=== PATIENT | male | born 1965 | race Caucasian/White ===

== ENCOUNTER 2018-11-02 21:18 | Inpatient (IN) | payer MEDICAID ==
[~2018-11-02] VITALS: Ht 182.9 cm; Wt 89.8 kg
[2018-11-02] MEDS ORDERED: NKM (21:39)
--- NOTE | 2018-11-02 21:57 | Emergency Room Report ---
History of Present Illness General Chief Complaint: Abdominal Pain Source: Patient Present Illness HPI Patient presents with vomiting and abdominal pain. The pain is described as cramping and 8/10 at this time. He started vomiting this afternoon even though he started feeling ill on Monday. He denies vomiting blood. He's moved his bowels several times and there is no diarrhea. He has no ill contacts, travel or unusual food intake. He feels dehydrated at this time. There is no coffee- ground or hematemesis. He also denies blood in the stool. There's no dysuria. He tried taking Tums on Monday and felt wiped out at that time. There was not significant pain initially. This developed over the past 2 days and became constant today. The patient's been ill for 3 weeks. He's had a mildly productive cough and postnasal drip during that time. He denies fevers but felt chilled with the vomiting today. He has had increased post nasal drip. No rashes, joint pain, headache, diabetes. No anxiety or depression. S/P appi Allergies: Coded Allergies: No Known Allergies (Unverified , 11/02/18) Patient History Past Medical History: see triage record Past Surgical History: appy Social History: Reports: smoking - vape; Denies: alcohol use, drug use Social History Narrative restaurant supply and sales Reviewed Nursing Documentation: PMH: Agreed; PSxH: Agreed Nursing Documentation-PMH Past Medical History: No Stated History Review of Systems All Other Systems: negative except mentioned in HPI Physical Exam Vital Signs Date Time Temp Pulse Resp B/P (MAP) Pulse Ox O2 Delivery O2 Flow Rate FiO2 11/02/18 21:34 97.9 92 18 156/98 95 Room Air Sp02 EP Interpretation: reviewed, normal General Appearance: well appearing, no apparent distress, GCS 15 Head: normocephalic Eyes: bilateral eye normal inspection, bilateral eye PERRL ENT: moist mucus membranes Neck: supple Respiratory: lungs clear, normal breath sounds Cardiovascular #1: regular rate, rhythm Cardiovascular #2: 2+ radial (R) Gastrointestinal: normal inspection, normal bowel sounds, no mass, non- distended, no rebound, guarding - and some referred pain to RLQ, tenderness - RLQ Musculoskeletal: back normal, gait/station normal, normal range of motion Neurologic: alert, oriented x3, normal gait, grossly normal Psychiatric: mood/affect normal Skin: normal inspection, warm/dry Medical Decision Making Diagnostic Impression: Primary Impression: Colitis Additional Impression: Partial small bowel obstruction ER Course Patient presents with abdominal pain and vomiting that began on Monday. Differential includes gastroenteritis, gastritis, small bowel obstruction, pancreatitis, amongst others. Evaluation will be with EKG, chest x-ray, abdominal series and labs. The patient will be treated with IV hydration, Zofran, Pepcid and morphine. Laboratory Tests Test 11/02/18 21:58 11/03/18 07:10 White Blood Count 14.2 K/UL (4.8-10.8) H 11.6 K/UL (4.8-10.8) H Red Blood Count 5.40 M/UL (4.70-6.10) 4.70 M/UL (4.70-6.10) Hemoglobin 17.2 G/DL (14.2-18.0) 15.2 G/DL (14.2-18.0) Hematocrit 49.0 % (42.0-52.0) 42.9 % (42.0-52.0) Mean Corpuscular Volume 91 FL (80-99) 91 FL (80-99) Mean Corpuscular Hemoglobin 31.9 PG (27.0-31.0) H 32.2 PG (27.0-31.0) H Mean Corpuscular Hemoglobin Concent 35.1 G/DL (32.0-36.0) 35.3 G/DL (32.0-36.0) Red Cell Distribution Width 10.8 % (11.6-14.8) L 10.6 % (11.6-14.8) L Platelet Count 393 K/UL (150-450) 349 K/UL (150-450) Mean Platelet Volume 6.0 FL (6.5-10.1) L 6.2 FL (6.5-10.1) L Neutrophils (%) (Auto) 85.1 % (45.0-75.0) H % (45.0-75.0) Lymphocytes (%) (Auto) 6.9 % (20.0-45.0) L % (20.0-45.0) Monocytes (%) (Auto) 7.0 % (1.0-10.0) % (1.0-10.0) Eosinophils (%) (Auto) 0.4 % (0.0-3.0) % (0.0-3.0) Basophils (%) (Auto) 0.6 % (0.0-2.0) % (0.0-2.0) Urine Color Yellow Urine Appearance Clear Urine pH 6 (4.5-8.0) Urine Specific [place] 1.015 (1.005-1.035) Urine Protein Negative (NEGATIVE) Urine Glucose (UA) Negative (NEGATIVE) Urine Ketones 1+ (NEGATIVE) H Urine Blood Negative (NEGATIVE) Urine Nitrite Negative (NEGATIVE) Urine Bilirubin Negative (NEGATIVE) Urine Urobilinogen Normal MG/DL (0.0-1.0) Urine Leukocyte Esterase Negative (NEGATIVE) Sodium Level 140 MMOL/L (136-145) 139 MMOL/L (136-145) Potassium Level 4.3 MMOL/L (3.5-5.1) 4.4 MMOL/L (3.5-5.1) Chloride Level 104 MMOL/L (98-107) 104 MMOL/L (98-107) Carbon Dioxide Level 30 MMOL/L (21-32) 31 MMOL/L (21-32) Anion Gap 6 mmol/L (5-15) 4 mmol/L (5-15) L Blood Urea Nitrogen 13 mg/dL (7-18) 9 mg/dL (7-18) Creatinine 1.0 MG/DL (0.55-1.30) 1.1 MG/DL (0.55-1.30) Estimate Glomerular Filtration Rate > 60 mL/min (>60) > 60 mL/min (>60) Glucose Level 124 MG/DL (74-106) H 125 MG/DL (74-106) H Calcium Level 9.2 MG/DL (8.5-10.1) 8.6 MG/DL (8.5-10.1) Total Bilirubin 0.4 MG/DL (0.2-1.0) 0.4 MG/DL (0.2-1.0) Aspartate Amino Transferase (AST) 25 U/L (15-37) 19 U/L (15-37) Alanine Aminotransferase (ALT) 58 U/L (12-78) 48 U/L (12-78) Alkaline Phosphatase 98 U/L (46-116) 82 U/L (46-116) Troponin I 0.000 ng/mL (0.000-0.056) Total Protein 8.5 G/DL (6.4-8.2) H 7.2 G/DL (6.4-8.2) Albumin 3.8 G/DL (3.4-5.0) 3.2 G/DL (3.4-5.0) L Globulin 4.7 g/dL 4.0 g/dL Albumin/Globulin Ratio 0.8 (1.0-2.7) L 0.8 (1.0-2.7) L Lipase 157 U/L (73-393) Differential Total Cells Counted 100 Neutrophils % (Manual) 92 % (45-75) H Lymphocytes % (Manual) 4 % (20-45) L Monocytes % (Manual) 4 % (1-10) Eosinophils % (Manual) 0 % (0-3) Basophils % (Manual) 0 % (0-2) Band Neutrophils 0 % (0-8) Platelet Estimate Adequate Platelet Morphology Normal Red Blood Cell Morphology Normal EKG Diagnostic Results Rate: normal Rhythm: NSR ST Segments: no acute changes Rhythm Strip Diag. Results EP Interpretation: yes Rhythm: NSR, no PVC's, no ectopy Chest X-Ray Diagnostic Results Chest X-Ray Diagnostic Results : Chest X-Ray Ordered: Yes # of Views/Limited/Complete: 1 View Indication: Other EP Interpretation: Yes Interpretation: no consolidation, no effusion, no pneumothorax Impression: No acute disease Electronically Signed by: Electronically signed by Edison Carrasco MD Other X-Ray Diagnostic Results Other X-Ray Diagnostic Results : X-Ray ordered: Abdomen # of Views/Limited Vs Complete: 1 View Indication: Pain Interpretation: no dislocation, no soft tissue swelling, no fractures Impression: Other Electronically Signed by: Electronically signed by Edison Carrasco MD CT/MRI/US Diagnostic Results CT/MRI/US Diagnostic Results : Imaging Test Ordered: abd pelvis Impression Colitis and possible partial small bowel obstruction Last Vital Signs Date Time Temp Pulse Resp B/P (MAP) Pulse Ox O2 Delivery O2 Flow Rate FiO2 11/03/18 04:12 Room Air 11/03/18 03:50 97.9 71 17 139/85 99 11/03/18 03:50 99 Status: improved Disposition: ADMITTED INPATIENT Condition: Serious Edison Carrasco MD Nov 02, 2018 21:57
[2018-11-02] MEDS ORDERED: Morphine Sulfate 2mg/ml Inj IVP ONE (22:00)
--- NOTE | 2018-11-02 22:40 | Diagnostic Imaging Report ---
EXAM: XR Chest, 1 View CLINICAL HISTORY: ABD PAIN TECHNIQUE: Frontal view of the chest. COMPARISON: No relevant prior studies available. FINDINGS: Lungs: No consolidation. Pleural space: Unremarkable. No pneumothorax. Heart: Unremarkable. No cardiomegaly. Mediastinum: Unremarkable. Bones/joints: No acute fracture. IMPRESSION: No acute cardiopulmonary disease.
[2018-11-02 22:48] LABS: APPEARANCE,URINE CLEAR; BILIRUBIN, URINE NEGATIVE (NEGATIVE); COLOR,URINE YELLOW; GLUCOSE, URINE (UA) NEGATIVE (NEGATIVE); KETONES,URINE 1+ (NEGATIVE); LEUKOCYTE ESTERASE ,URINE NEGATIVE (NEGATIVE); NITRITE,URINE NEGATIVE (NEGATIVE); PH,URINE 6 (4.5-8.0); PROTEIN,URINE NEGATIVE (NEGATIVE); UROBILINOGEN,URINE NORMAL MG/DL (0.0-1.0)
--- NOTE | 2018-11-02 22:51 | Diagnostic Imaging Report ---
EXAM: XR Abdomen, 1 View CLINICAL HISTORY: ABD PAIN TECHNIQUE: Frontal supine view of the abdomen/pelvis. COMPARISON: No relevant prior studies available. FINDINGS: Gastrointestinal tract: Nonspecific bowel gas pattern. Bones/joints: No acute fracture. IMPRESSION: Nonspecific bowel gas pattern.
[2018-11-02 22:55] LABS: HEMOGLOBIN 17.2 G/DL (14.2-18.0); MEAN CORPUSCULAR VOLUME 91 FL (80-99); PLATELET COUNT 393 K/UL (150-450); RED CELL DISTRIBUTION WIDTH 10.8 % (11.6-14.8); WHITE BLOOD COUNT 14.2 K/UL (4.8-10.8)
[2018-11-02 22:56] LABS: EOSINOPHILS % (AUTO) 0.4 % (0.0-3.0); LYMPHOCYTES % (AUTO) 6.9 % (20.0-45.0); NEUTROPHILS % (AUTO) 85.1 % (45.0-75.0)
[2018-11-02 22:57] LABS: BASOPHILS % (AUTO) 0.6 % (0.0-2.0)
[2018-11-02 23:02] LABS: ANION GAP 6 mmol/L (5-15); BLOOD UREA NITROGEN 13 mg/dL (7-18); CALCIUM 9.2 MG/DL (8.5-10.1); CARBON DIOXIDE 30 MMOL/L (21-32); CHLORIDE 104 MMOL/L (98-107); POTASSIUM 4.3 MMOL/L (3.5-5.1); SODIUM 140 MMOL/L (136-145)
[2018-11-02 23:07] LABS: ALANINE AMINOTRANSFERASE 58 U/L (12-78); ALBUMIN 3.8 G/DL (3.4-5.0); ALBUMIN/GLOBULIN RATIO 0.8 (1.0-2.7); ALKALINE PHOSPHATASE 98 U/L (46-116); ASPARTATE AMINO TRANSFERASE 25 U/L (15-37); BILIRUBIN,TOTAL 0.4 MG/DL (0.2-1.0)
[2018-11-02 23:10] VITALS: BP 150/91
[2018-11-03] VITALS (7 sets, daily range): BP systolic 132–144; BP diastolic 69–93
[2018-11-03] MEDS ORDERED: Morphine Sulfate 4mg/ml Inj (IV/IM USE ONLY) IVP ONE
--- NOTE | 2018-11-03 00:38 | Diagnostic Imaging Report ---
EXAM: CT Abdomen With Intravenous Contrast CLINICAL HISTORY: ABD PAIN TECHNIQUE: Axial computed tomography images of the abdomen with intravenous contrast. CTDI is 20 mGy and DLP is 900 mGy-cm. One or more of the following dose reduction techniques were used: automated exposure control, adjustment of the mA and/or kV according to patient size, use of iterative reconstruction technique. COMPARISON: Correlated with earlier radiograph. FINDINGS: Lung bases: Unremarkable. No mass. No consolidation. Liver: Unremarkable. No mass. Gallbladder and bile ducts: Unremarkable. No calcified stones. No ductal dilation. Pancreas: Unremarkable. No mass. No ductal dilation. Spleen: Unremarkable. No splenomegaly. Adrenals: Unremarkable. No mass. Kidneys and ureters: Unremarkable. No solid mass. No hydronephrosis. Stomach and bowel: Abnormal wall thickening of the terminal ileum and proximal ascending colon. There is moderate degree of dilatation of the more proximal small bowel loops with air-fluid levels. Distended stomach. No diverticulitis. Appendix: The appendix is not definitively seen. Probable appendectomy clip on image 50 of series 3. Intraperitoneal space: Mild mesenteric edema and stranding. Small amount of free fluid No free air. No significant fluid collection. Bones/joints: No acute fracture. No dislocation. Arthritic changes in the right SI joint. Soft tissues: Unremarkable. Vasculature: Unremarkable. Lymph nodes: Several mesenteric lymph nodes. IMPRESSION: Findings consistent with infectious or inflammatory enterocolitis involving the terminal ileum and proximal ascending colon. There is secondary developing small bowel obstruction. Recommend followup to exclude underlying occult mass. Small amount of free fluid. No free air or fluid collections. Likely reactive mesenteric lymphadenopathy. Suspected prior appendectomy. Correlate with history.
[2018-11-03] MEDS ORDERED: HYDROmorphone 1mg/ml Carpuject IVP ONE ×2 (01:00→02:00)
[2018-11-03] MEDS ORDERED: Piperacillin/Tazobactam 3.375 GM in NS 110 ML IVPB ONE (01:00)
[2018-11-03] MEDS ORDERED: HYDROmorphone 1mg/ml Carpuject IVP PRN (04:15)
[2018-11-03 07:31] LABS: HEMATOCRIT 42.9 % (42.0-52.0); HEMOGLOBIN 15.2 G/DL (14.2-18.0); MEAN CORPUSCULAR VOLUME 91 FL (80-99); PLATELET COUNT 349 K/UL (150-450); RED CELL DISTRIBUTION WIDTH 10.6 % (11.6-14.8); WHITE BLOOD COUNT 11.6 K/UL (4.8-10.8)
[2018-11-03 07:46] LABS: ALANINE AMINOTRANSFERASE 48 U/L (12-78); ALBUMIN 3.2 G/DL (3.4-5.0); ALBUMIN/GLOBULIN RATIO 0.8 (1.0-2.7); ALKALINE PHOSPHATASE 82 U/L (46-116); ANION GAP 4 mmol/L (5-15); ASPARTATE AMINO TRANSFERASE 19 U/L (15-37); BILIRUBIN,TOTAL 0.4 MG/DL (0.2-1.0); BLOOD UREA NITROGEN 9 mg/dL (7-18); CALCIUM 8.6 MG/DL (8.5-10.1); CARBON DIOXIDE 31 MMOL/L (21-32); CHLORIDE 104 MMOL/L (98-107); CREATININE 1.1 MG/DL (0.55-1.30); POTASSIUM 4.4 MMOL/L (3.5-5.1); SODIUM 139 MMOL/L (136-145)
--- NOTE | 2018-11-03 10:48 | General Progress Note ---
Assessment/Plan Assessment/Plan abd pain ? gastroenteritis CT reviewed stool studies ordered labs ordered including drug screen advance diet fu Subjective ROS Limited/Unobtainable: Yes Allergies: Coded Allergies: No Known Allergies (Unverified , 11/02/18) Subjective abd pain Objective Last 24 Hour Vital Signs Date Time Temp Pulse Resp B/P (MAP) Pulse Ox O2 Delivery O2 Flow Rate FiO2 11/03/18 08:00 98.6 79 132/69 (90) 11/03/18 04:12 Room Air 11/03/18 03:50 97.9 71 17 139/85 99 Room Air 11/03/18 03:50 97.9 71 17 139/85 99 Room Air 99 11/03/18 03:05 97.9 74 17 140/89 99 Room Air 11/03/18 01:09 97.9 72 18 144/93 99 Room Air 11/02/18 23:10 97.9 73 18 150/91 95 Room Air 11/02/18 23:10 73 18 Room Air 99 11/02/18 21:34 97.9 92 18 156/98 95 Room Air Intake and Output 11/02/18 11/03/18 19:00 07:00 Intake Total 4200 ml Balance 4200 ml Intake IV Total 4200 ml Laboratory Tests 11/02/18 21:58: White Blood Count 14.2H, Red Blood Count 5.40, Hemoglobin 17.2, Hematocrit 49.0 , Mean Corpuscular Volume 91, Mean Corpuscular Hemoglobin 31.9H, Mean Corpuscular Hemoglobin Concent 35.1, Red Cell Distribution Width 10.8L, Platelet Count 393, Mean Platelet Volume 6.0L, Neutrophils (%) (Auto) 85.1H, Lymphocytes (%) (Auto) 6.9L, Monocytes (%) (Auto) 7.0, Eosinophils (%) (Auto) 0.4, Basophils (%) (Auto) 0.6, Urine Color Yellow, Urine Appearance Clear, Urine pH 6, Urine Specific [place] 1.015, Urine Protein Negative, Urine Glucose (UA) Negative, Urine Ketones 1+H, Urine Blood Negative, Urine Nitrite Negative, Urine Bilirubin Negative, Urine Urobilinogen Normal, Urine Leukocyte Esterase Negative, Sodium Level 140, Potassium Level 4.3, Chloride Level 104, Carbon Dioxide Level 30, Anion Gap 6, Blood Urea Nitrogen 13, Creatinine 1.0, Estimat Glomerular Filtration Rate > 60, Glucose Level 124H, Calcium Level 9.2, Total Bilirubin 0.4, Aspartate Amino Transf (AST/SGOT) 25, Alanine Aminotransferase ( ALT/SGPT) 58, Alkaline Phosphatase 98, Troponin I 0.000, Total Protein 8.5H, Albumin 3.8, Globulin 4.7, Albumin/Globulin Ratio 0.8L, Lipase 157 11/03/18 07:10: White Blood Count 11.6H, Red Blood Count 4.70, Hemoglobin 15.2, Hematocrit 42.9 , Mean Corpuscular Volume 91, Mean Corpuscular Hemoglobin 32.2H, Mean Corpuscular Hemoglobin Concent 35.3, Red Cell Distribution Width 10.6L, Platelet Count 349, Mean Platelet Volume 6.2L, Neutrophils (%) (Auto) , Lymphocytes (%) (Auto) , Monocytes (%) (Auto) , Eosinophils (%) (Auto) , Basophils (%) (Auto) , Sodium Level 139, Potassium Level 4.4, Chloride Level 104 , Carbon Dioxide Level 31, Anion Gap 4L, Blood Urea Nitrogen 9, Creatinine 1.1, Estimat Glomerular Filtration Rate > 60, Glucose Level 125H, Calcium Level 8.6, Total Bilirubin 0.4, Aspartate Amino Transf (AST/SGOT) 19, Alanine Aminotransferase (ALT/SGPT) 48, Alkaline Phosphatase 82, Total Protein 7.2, Albumin 3.2L, Globulin 4.0, Albumin/Globulin Ratio 0.8L, Differential Total Cells Counted 100, Neutrophils % (Manual) 92H, Lymphocytes % (Manual) 4L, Monocytes % (Manual) 4, Eosinophils % (Manual) 0, Basophils % (Manual) 0, Band Neutrophils 0, Platelet Estimate Adequate, Platelet Morphology Normal, Red Blood Cell Morphology Normal Height (Feet): 6 Height (Inches): 0.00 Weight (Pounds): 212 General Appearance: alert EENT: normal ENT inspection Neck: supple Cardiovascular: normal rate Respiratory/Chest: lungs clear Abdomen: soft, tender Extremities: non-tender Donald Haro MD Nov 03, 2018 10:48
--- NOTE | 2018-11-03 12:15 | History and Physical Report ---
DATE OF ADMISSION: 11/03/2018 REASON FOR ADMISSION: Bowel obstruction. HISTORY OF PRESENT ILLNESS: This is a 53-year-old male presents with abdominal pain. The patient presents with infectious enterocolitis involving terminal ileum and ascending colon with associated small bowel obstruction. The patient is currently complaining of abdominal pain. The patient had been undergoing detox for alcohol and denies any significant diarrhea at this time. The patient has had no fevers or chills. No ill contacts. No recent travel. The patient has been ill for three weeks for upper airway symptoms. The patient is also with history of appendectomy. PAST MEDICAL HISTORY: Notable for the above. MEDICATIONS: Reviewed. ALLERGIES: Reviewed. SOCIAL HISTORY: Residing now at [facility] and does have history of alcohol abuse. REVIEW OF SYSTEMS: Otherwise negative. PHYSICAL EXAMINATION: GENERAL: A well-developed male, otherwise comfortable. VITAL SIGNS: Stable. The patient is afebrile. LUNGS: Clear. CARDIAC: S1, S2. Regular rate and rhythm. ABDOMEN: Tender diffusely, more on the right side. EXTREMITIES: No edema. LABORATORY AND DIAGNOSTIC DATA: White count is 11.6. Chemistry is fairly negative. Albumin is 3.2. IMPRESSION: Small bowel obstruction, evidence of enteritis, alcohol abuse per history, mild protein-calorie malnutrition. RECOMMENDATIONS: Supportive care, IV hydration, pain control. Clear liquid diet. GI evaluation. Reassess and recommend further. Discharge once improved and stable. We will follow clinically for further changes intervention and ongoing recommendations. Tyrese Mathew M.D. DR: SABINA JOB#: [id number] CC:
[2018-11-04] VITALS (7 sets, daily range): BP systolic 121–143; BP diastolic 62–100
[2018-11-04] MEDS ORDERED: Morphine Sulfate 4mg/ml Inj (IV/IM USE ONLY) IVP PRN ×2 (04:15)
[2018-11-04] MEDS ORDERED: Morphine Sulfate 2mg/ml Inj IVP PRN ×2 (04:15→04:45)
[2018-11-04] MEDS: Morphine Sulfate 4mg/ml Inj (IV/IM USE ONLY) IVP PRN ×5 (05:27→21:52)
--- NOTE | 2018-11-04 07:07 | General Progress Note ---
Assessment/Plan Assessment/Plan abd pain ? gastroenteritis CT reviewed stool studies ordered labs ordered including drug screen advance diet fu Subjective ROS Limited/Unobtainable: Yes Allergies: Coded Allergies: No Known Allergies (Unverified , 11/02/18) Subjective abd pain vomiting no BM passing gas Objective Last 24 Hour Vital Signs Date Time Temp Pulse Resp B/P (MAP) Pulse Ox O2 Delivery O2 Flow Rate FiO2 11/04/18 05:57 99.1 11/04/18 05:56 99.1 11/04/18 05:33 100 11/04/18 05:19 99.1 11/04/18 04:55 102.3 19 143/100 (114) 92 11/04/18 02:49 99.1 11/04/18 00:51 99.1 93 19 136/86 (103) 95 11/03/18 20:00 Room Air 11/03/18 20:00 99.3 86 19 132/82 (99) 93 11/03/18 16:00 99.9 93 19 134/84 (101) 93 11/03/18 12:00 99.4 88 19 135/85 (102) 93 11/03/18 09:00 Room Air 11/03/18 08:00 98.6 79 132/69 (90) Intake and Output 11/03/18 11/04/18 19:00 07:00 Intake Total 100 ml 1310 ml Output Total 100 ml Balance 100 ml 1210 ml Intake Oral 360 ml IV Total 100 ml 600 ml Other 350 ml Output Emesis 100 ml # Voids 5 Laboratory Tests 11/03/18 07:10: White Blood Count 11.6H, Red Blood Count 4.70, Hemoglobin 15.2, Hematocrit 42.9 , Mean Corpuscular Volume 91, Mean Corpuscular Hemoglobin 32.2H, Mean Corpuscular Hemoglobin Concent 35.3, Red Cell Distribution Width 10.6L, Platelet Count 349, Mean Platelet Volume 6.2L, Neutrophils (%) (Auto) , Lymphocytes (%) (Auto) , Monocytes (%) (Auto) , Eosinophils (%) (Auto) , Basophils (%) (Auto) , Differential Total Cells Counted 100, Neutrophils % ( Manual) 92H, Lymphocytes % (Manual) 4L, Monocytes % (Manual) 4, Eosinophils % ( Manual) 0, Basophils % (Manual) 0, Band Neutrophils 0, Platelet Estimate Adequate, Platelet Morphology Normal, Red Blood Cell Morphology Normal, Sodium Level 139, Potassium Level 4.4, Chloride Level 104, Carbon Dioxide Level 31, Anion Gap 4L, Blood Urea Nitrogen 9, Creatinine 1.1, Estimat Glomerular Filtration Rate > 60, Glucose Level 125H, Calcium Level 8.6, Total Bilirubin 0.4 , Aspartate Amino Transf (AST/SGOT) 19, Alanine Aminotransferase (ALT/SGPT) 48, Alkaline Phosphatase 82, Total Protein 7.2, Albumin 3.2L, Globulin 4.0, Albumin/ Globulin Ratio 0.8L 11/03/18 15:00: Urine Opiates Screen Negative, Urine Barbiturates Screen Negative, Phencyclidine (PCP) Screen Negative, Urine Amphetamines Screen Negative, Urine Benzodiazepines Screen Negative, Urine Cocaine Screen Negative, Urine Marijuana (THC) Screen Negative Height (Feet): 6 Height (Inches): 0.00 Weight (Pounds): 212 Donald Haro MD Nov 04, 2018 07:07
--- NOTE | 2018-11-04 07:08 | General Progress Note ---
Assessment/Plan Assessment/Plan abd pain ? gastroenteritis CT reviewed stool studies not collected bladimir fu labs start clears Subjective ROS Limited/Unobtainable: Yes Allergies: Coded Allergies: No Known Allergies (Unverified , 11/02/18) Subjective abd pain vomiting no BM passing gas Objective Last 24 Hour Vital Signs Date Time Temp Pulse Resp B/P (MAP) Pulse Ox O2 Delivery O2 Flow Rate FiO2 11/04/18 05:57 99.1 11/04/18 05:56 99.1 11/04/18 05:33 100 11/04/18 05:19 99.1 11/04/18 04:55 102.3 19 143/100 (114) 92 11/04/18 02:49 99.1 11/04/18 00:51 99.1 93 19 136/86 (103) 95 11/03/18 20:00 Room Air 11/03/18 20:00 99.3 86 19 132/82 (99) 93 11/03/18 16:00 99.9 93 19 134/84 (101) 93 11/03/18 12:00 99.4 88 19 135/85 (102) 93 11/03/18 09:00 Room Air 11/03/18 08:00 98.6 79 132/69 (90) Intake and Output 11/03/18 11/04/18 19:00 07:00 Intake Total 100 ml 1310 ml Output Total 100 ml Balance 100 ml 1210 ml Intake Oral 360 ml IV Total 100 ml 600 ml Other 350 ml Output Emesis 100 ml # Voids 5 Laboratory Tests 11/03/18 07:10: White Blood Count 11.6H, Red Blood Count 4.70, Hemoglobin 15.2, Hematocrit 42.9 , Mean Corpuscular Volume 91, Mean Corpuscular Hemoglobin 32.2H, Mean Corpuscular Hemoglobin Concent 35.3, Red Cell Distribution Width 10.6L, Platelet Count 349, Mean Platelet Volume 6.2L, Neutrophils (%) (Auto) , Lymphocytes (%) (Auto) , Monocytes (%) (Auto) , Eosinophils (%) (Auto) , Basophils (%) (Auto) , Differential Total Cells Counted 100, Neutrophils % ( Manual) 92H, Lymphocytes % (Manual) 4L, Monocytes % (Manual) 4, Eosinophils % ( Manual) 0, Basophils % (Manual) 0, Band Neutrophils 0, Platelet Estimate Adequate, Platelet Morphology Normal, Red Blood Cell Morphology Normal, Sodium Level 139, Potassium Level 4.4, Chloride Level 104, Carbon Dioxide Level 31, Anion Gap 4L, Blood Urea Nitrogen 9, Creatinine 1.1, Estimat Glomerular Filtration Rate > 60, Glucose Level 125H, Calcium Level 8.6, Total Bilirubin 0.4 , Aspartate Amino Transf (AST/SGOT) 19, Alanine Aminotransferase (ALT/SGPT) 48, Alkaline Phosphatase 82, Total Protein 7.2, Albumin 3.2L, Globulin 4.0, Albumin/ Globulin Ratio 0.8L 11/03/18 15:00: Urine Opiates Screen Negative, Urine Barbiturates Screen Negative, Phencyclidine (PCP) Screen Negative, Urine Amphetamines Screen Negative, Urine Benzodiazepines Screen Negative, Urine Cocaine Screen Negative, Urine Marijuana (THC) Screen Negative Height (Feet): 6 Height (Inches): 0.00 Weight (Pounds): 212 General Appearance: alert EENT: normal ENT inspection Neck: supple Cardiovascular: normal rate Respiratory/Chest: lungs clear Abdomen: soft, hypoactive bowel sounds, tender Extremities: non-tender Donald Haro MD Nov 04, 2018 07:08
[2018-11-04 08:10] LABS: HEMOGLOBIN 15.8 G/DL (14.2-18.0); MEAN CORPUSCULAR VOLUME 90 FL (80-99); PLATELET COUNT 327 K/UL (150-450); RED BLOOD COUNT 4.87 M/UL (4.70-6.10); RED CELL DISTRIBUTION WIDTH 10.7 % (11.6-14.8); WHITE BLOOD COUNT 13.5 K/UL (4.8-10.8)
[2018-11-04 08:28] LABS: ALANINE AMINOTRANSFERASE 32 U/L (12-78); ALBUMIN 3.1 G/DL (3.4-5.0); ALBUMIN/GLOBULIN RATIO 0.7 (1.0-2.7); ALKALINE PHOSPHATASE 83 U/L (46-116); AMYLASE 57 U/L (25-115); ANION GAP 8 mmol/L (5-15); ASPARTATE AMINO TRANSFERASE 16 U/L (15-37); BILIRUBIN,TOTAL 0.4 MG/DL (0.2-1.0); BLOOD UREA NITROGEN 8 mg/dL (7-18); CALCIUM 8.8 MG/DL (8.5-10.1); CARBON DIOXIDE 30 MMOL/L (21-32); CHLORIDE 101 MMOL/L (98-107); POTASSIUM 3.7 MMOL/L (3.5-5.1); SODIUM 138 MMOL/L (136-145)
--- NOTE | 2018-11-04 08:45 | General Progress Note ---
Assessment/Plan Assessment/Plan IMPRESSION: Small bowel obstruction, evidence of enteritis, alcohol abuse per history, mild protein-calorie malnutrition. gastroenteritis PLAN clears monitor hope to dc in am if stable and improved imaging noted impression, plan, and exam edited and reviewed in detail care discussed with RN Subjective Allergies: Coded Allergies: No Known Allergies (Unverified , 11/02/18) Subjective still vomited last night seen by GI Objective Last 24 Hour Vital Signs Date Time Temp Pulse Resp B/P (MAP) Pulse Ox O2 Delivery O2 Flow Rate FiO2 11/04/18 05:57 99.1 11/04/18 05:56 99.1 11/04/18 05:33 100 11/04/18 05:19 99.1 11/04/18 04:55 102.3 19 143/100 (114) 92 11/04/18 02:49 99.1 11/04/18 00:51 99.1 93 19 136/86 (103) 95 11/03/18 20:00 Room Air 11/03/18 20:00 99.3 86 19 132/82 (99) 93 11/03/18 16:00 99.9 93 19 134/84 (101) 93 11/03/18 12:00 99.4 88 19 135/85 (102) 93 11/03/18 09:00 Room Air Intake and Output 11/03/18 11/04/18 19:00 07:00 Intake Total 100 ml 1510 ml Output Total 100 ml Balance 100 ml 1410 ml Intake Oral 360 ml IV Total 100 ml 800 ml Other 350 ml Output Emesis 100 ml # Voids 5 Laboratory Tests 11/03/18 15:00: Urine Opiates Screen Negative, Urine Barbiturates Screen Negative, Phencyclidine (PCP) Screen Negative, Urine Amphetamines Screen Negative, Urine Benzodiazepines Screen Negative, Urine Cocaine Screen Negative, Urine Marijuana (THC) Screen Negative 11/04/18 06:28: White Blood Count 13.5H, Red Blood Count 4.87, Hemoglobin 15.8, Hematocrit 44.0 , Mean Corpuscular Volume 90, Mean Corpuscular Hemoglobin 32.4H, Mean Corpuscular Hemoglobin Concent 35.9, Red Cell Distribution Width 10.7L, Platelet Count 327, Mean Platelet Volume 5.8L, Neutrophils (%) (Auto) , Lymphocytes (%) (Auto) , Monocytes (%) (Auto) , Eosinophils (%) (Auto) , Basophils (%) (Auto) , Differential Total Cells Counted 100, Neutrophils % ( Manual) 86H, Lymphocytes % (Manual) 8L, Monocytes % (Manual) 4, Eosinophils % ( Manual) 0, Basophils % (Manual) 0, Band Neutrophils 2, Platelet Estimate Adequate, Platelet Morphology Normal, Red Blood Cell Morphology Normal, Sodium Level 138, Potassium Level 3.7, Chloride Level 101, Carbon Dioxide Level 30, Anion Gap 8, Blood Urea Nitrogen 8, Creatinine 1.0, Estimat Glomerular Filtration Rate > 60, Glucose Level 145H, Calcium Level 8.8, Total Bilirubin 0.4 , Aspartate Amino Transf (AST/SGOT) 16, Alanine Aminotransferase (ALT/SGPT) 32, Alkaline Phosphatase 83, Total Protein 7.4, Albumin 3.1L, Globulin 4.3, Albumin/ Globulin Ratio 0.7L, Amylase Level 57, Lipase 95 Height (Feet): 6 Height (Inches): 0.00 Weight (Pounds): 212 Objective PHYSICAL EXAMINATION: GENERAL: A well-developed male, otherwise comfortable. LUNGS: Clear. CARDIAC: S1, S2. Regular rate and rhythm. ABDOMEN: mildly Tender diffusely, more on the right side. EXTREMITIES: No edema. nonfocal Tyrese Mathew MD Nov 04, 2018 08:45
--- NOTE | 2018-11-04 08:56 | Diagnostic Imaging Report ---
EXAM: XR Chest, 1 View CLINICAL HISTORY: ABD PAIN TECHNIQUE: Frontal view of the chest. COMPARISON: 11/02/18. FINDINGS: Lungs: Minimal basilar atelectasis. Pleural space: Unremarkable. No pneumothorax. Heart: Unremarkable. No cardiomegaly. Mediastinum: Unremarkable. Bones/joints: Unremarkable. IMPRESSION: No acute pulmonary disease. Minimal basilar atelectasis.
[2018-11-05] VITALS: BP 136/83
[2018-11-05 04:00] VITALS: BP 153/88
[2018-11-05] MEDS: Morphine Sulfate 4mg/ml Inj (IV/IM USE ONLY) IVP PRN ×5 (05:42→19:51)
[2018-11-05 06:29] LABS: BASOPHILS % (AUTO) 0.6 % (0.0-2.0); EOSINOPHILS % (AUTO) 0.3 % (0.0-3.0); HEMATOCRIT 42.4 % (42.0-52.0); HEMOGLOBIN 15.2 G/DL (14.2-18.0); LYMPHOCYTES % (AUTO) 7.3 % (20.0-45.0); MEAN CORPUSCULAR VOLUME 90 FL (80-99); MONOCYTES % (AUTO) 9.9 % (1.0-10.0); NEUTROPHILS % (AUTO) 81.9 % (45.0-75.0); PLATELET COUNT 305 K/UL (150-450); RED BLOOD COUNT 4.69 M/UL (4.70-6.10); RED CELL DISTRIBUTION WIDTH 10.7 % (11.6-14.8); WHITE BLOOD COUNT 11.1 K/UL (4.8-10.8)
[2018-11-05 06:52] LABS: ALANINE AMINOTRANSFERASE 29 U/L (12-78); ALBUMIN 2.8 G/DL (3.4-5.0); ALBUMIN/GLOBULIN RATIO 0.7 (1.0-2.7); ALKALINE PHOSPHATASE 71 U/L (46-116); ANION GAP 5 mmol/L (5-15); ASPARTATE AMINO TRANSFERASE 15 U/L (15-37); BILIRUBIN,TOTAL 0.4 MG/DL (0.2-1.0); BLOOD UREA NITROGEN 8 mg/dL (7-18); CALCIUM 8.3 MG/DL (8.5-10.1); CARBON DIOXIDE 31 MMOL/L (21-32); CHLORIDE 101 MMOL/L (98-107); CREATININE 0.9 MG/DL (0.55-1.30); POTASSIUM 3.9 MMOL/L (3.5-5.1); SODIUM 137 MMOL/L (136-145)
[2018-11-05 08:00] VITALS: BP 146/84
--- NOTE | 2018-11-05 08:34 | General Progress Note ---
Assessment/Plan Assessment/Plan IMPRESSION: Small bowel obstruction, evidence of enteritis, alcohol abuse per history, mild protein-calorie malnutrition. gastroenteritis PLAN clears monitor dc planning imaging noted impression, plan, and exam edited and reviewed in detail care discussed with RN Subjective Allergies: Coded Allergies: No Known Allergies (Unverified , 11/02/18) Subjective appreciate GI Objective Last 24 Hour Vital Signs Date Time Temp Pulse Resp B/P (MAP) Pulse Ox O2 Delivery O2 Flow Rate FiO2 11/05/18 08:00 99.9 94 19 146/84 (104) 95 11/05/18 04:00 99.1 88 18 153/88 (109) 97 11/05/18 00:00 99.4 67 18 136/83 (100) 96 11/04/18 21:00 Room Air 11/04/18 20:00 98.3 85 19 143/83 (103) 97 11/04/18 16:00 98.4 64 18 128/73 (91) 98 11/04/18 12:00 98.6 74 18 124/81 (95) 98 11/04/18 09:00 Room Air Intake and Output 11/04/18 11/05/18 19:00 07:00 Intake Total 900 ml 1720 ml Output Total 150 ml Balance 900 ml 1570 ml Intake Oral 620 ml IV Total 900 ml 1100 ml Output Emesis 150 ml # Voids 2 4 Laboratory Tests 11/05/18 05:40: White Blood Count 11.1H, Red Blood Count 4.69L, Hemoglobin 15.2, Hematocrit 42.4 , Mean Corpuscular Volume 90, Mean Corpuscular Hemoglobin 32.3H, Mean Corpuscular Hemoglobin Concent 35.7, Red Cell Distribution Width 10.7L, Platelet Count 305, Mean Platelet Volume 5.9L, Neutrophils (%) (Auto) 81.9H, Lymphocytes (%) (Auto) 7.3L, Monocytes (%) (Auto) 9.9, Eosinophils (%) (Auto) 0.3, Basophils (%) (Auto) 0.6, Sodium Level 137, Potassium Level 3.9, Chloride Level 101, Carbon Dioxide Level 31, Anion Gap 5, Blood Urea Nitrogen 8, Creatinine 0.9, Estimat Glomerular Filtration Rate > 60, Glucose Level 113H, Calcium Level 8.3L, Total Bilirubin 0.4, Aspartate Amino Transf (AST/SGOT) 15, Alanine Aminotransferase (ALT/SGPT) 29, Alkaline Phosphatase 71, Total Protein 6.6, Albumin 2.8L, Globulin 3.8, Albumin/Globulin Ratio 0.7L Height (Feet): 6 Height (Inches): 0.00 Weight (Pounds): 212 Objective PHYSICAL EXAMINATION: GENERAL: A well-developed male, otherwise comfortable. LUNGS: Clear. CARDIAC: S1, S2. Regular rate and rhythm. ABDOMEN: NABS no CCE nonfocal Tyrese Mathew MD Nov 05, 2018 08:34
[2018-11-05] MEDS ORDERED: Milk of Magnesia 30ml Ud ORAL PRN (10:00)
--- NOTE | 2018-11-05 11:13 | GI Progress Note ---
Assessment/Plan Problems: (1) Colitis ICD Codes: K52.9 - Noninfective gastroenteritis and colitis, unspecified SNOMED: 53030756 (2) Partial small bowel obstruction ICD Codes: K56.600 - Partial intestinal obstruction, unspecified as to cause SNOMED: 349416011 (3) Short bowel syndrome ICD Codes: K91.2 - Postsurgical malabsorption, not elsewhere classified SNOMED: 24316371 (4) SOB (shortness of breath) ICD Codes: R06.02 - Shortness of breath SNOMED: 968594650 Status: unchanged Status Narrative Discussed with Dr. Haro. Assessment/Plan abd pain CT reviewed infectious or inflammatory enterocolitis involving the terminal ileum and proximal ascending colon. There is secondary developing small bowel obstruction. ? gastroenteritis collator image ordered avoid narcotic use CLD, advance as tolerated abx fu labs UPDATE @ 1500 >> KUB shows worsening SB dilated loops >> Make NPO, SB Follow through ordered. The patient was seen and examined at bedside and all new and available data was reviewed in the patients chart. I agree with the above findings, impression and plan. (Patient seen earlier today. Signature stamp does not reflect patient encounter time.). - Donald Haro MD Subjective Subjective no BM not passing gas abdominal distention emesis x3 last night Objective Last 24 Hour Vital Signs Date Time Temp Pulse Resp B/P (MAP) Pulse Ox O2 Delivery O2 Flow Rate FiO2 11/05/18 09:30 98.4 11/05/18 09:00 Room Air 11/05/18 08:00 99.9 94 19 146/84 (104) 95 11/05/18 04:00 99.1 88 18 153/88 (109) 97 11/05/18 00:00 99.4 67 18 136/83 (100) 96 11/04/18 21:00 Room Air 11/04/18 20:00 98.3 85 19 143/83 (103) 97 11/04/18 16:00 98.4 64 18 128/73 (91) 98 11/04/18 12:00 98.6 74 18 124/81 (95) 98 Intake and Output 11/04/18 11/05/18 19:00 07:00 Intake Total 900 ml 1720 ml Output Total 150 ml Balance 900 ml 1570 ml Intake Oral 620 ml IV Total 900 ml 1100 ml Output Emesis 150 ml # Voids 2 4 Laboratory Tests Test 11/05/18 05:40 White Blood Count 11.1 K/UL (4.8-10.8) H Red Blood Count 4.69 M/UL (4.70-6.10) L Hemoglobin 15.2 G/DL (14.2-18.0) Hematocrit 42.4 % (42.0-52.0) Mean Corpuscular Volume 90 FL (80-99) Mean Corpuscular Hemoglobin 32.3 PG (27.0-31.0) H Mean Corpuscular Hemoglobin Concent 35.7 G/DL (32.0-36.0) Red Cell Distribution Width 10.7 % (11.6-14.8) L Platelet Count 305 K/UL (150-450) Mean Platelet Volume 5.9 FL (6.5-10.1) L Neutrophils (%) (Auto) 81.9 % (45.0-75.0) H Lymphocytes (%) (Auto) 7.3 % (20.0-45.0) L Monocytes (%) (Auto) 9.9 % (1.0-10.0) Eosinophils (%) (Auto) 0.3 % (0.0-3.0) Basophils (%) (Auto) 0.6 % (0.0-2.0) Sodium Level 137 MMOL/L (136-145) Potassium Level 3.9 MMOL/L (3.5-5.1) Chloride Level 101 MMOL/L (98-107) Carbon Dioxide Level 31 MMOL/L (21-32) Anion Gap 5 mmol/L (5-15) Blood Urea Nitrogen 8 mg/dL (7-18) Creatinine 0.9 MG/DL (0.55-1.30) Estimat Glomerular Filtration Rate > 60 mL/min (>60) Glucose Level 113 MG/DL (74-106) H Calcium Level 8.3 MG/DL (8.5-10.1) L Total Bilirubin 0.4 MG/DL (0.2-1.0) Aspartate Amino Transf (AST/SGOT) 15 U/L (15-37) Alanine Aminotransferase (ALT/SGPT) 29 U/L (12-78) Alkaline Phosphatase 71 U/L (46-116) Total Protein 6.6 G/DL (6.4-8.2) Albumin 2.8 G/DL (3.4-5.0) L Globulin 3.8 g/dL Albumin/Globulin Ratio 0.7 (1.0-2.7) L Height (Feet): 6 Height (Inches): 0.00 Weight (Pounds): 212 General Appearance: WD/WN, no apparent distress, alert Cardiovascular: normal rate Respiratory/Chest: normal breath sounds, no respiratory distress Abdominal Exam: soft, distended, tender Extremities: non-tender Vin Morales NP Nov 05, 2018 11:13
[2018-11-05 12:00] VITALS: BP 144/97
[2018-11-05] MEDS ORDERED: Zolpidem 5mg tab ORAL PRN (14:30)
--- NOTE | 2018-11-05 14:37 | Diagnostic Imaging Report ---
Indication: Abdominal pain Comparison: 11/03/2018 Single view of the abdomen obtained Findings: Small bowel distention appears slightly worse on the current examination. This is centered about the mid abdomen. IMPRESSION: Worsening small bowel dilatation, currently mild to moderate in degree. Follow-up suggested.
[2018-11-05] MEDS ORDERED: Tubing IV Secondary IV ONE (15:45)
[2018-11-05 16:00] VITALS: BP 126/77
[2018-11-05 20:00] VITALS: BP 125/59
[2018-11-06] MEDS: Morphine Sulfate 4mg/ml Inj (IV/IM USE ONLY) IVP PRN ×6 (00:48→17:09)
[2018-11-06 04:00] VITALS: BP 114/64
[2018-11-06 06:56] LABS: ANION GAP 4 mmol/L (5-15); BLOOD UREA NITROGEN 8 mg/dL (7-18); CALCIUM 8.2 MG/DL (8.5-10.1); CARBON DIOXIDE 31 MMOL/L (21-32); CHLORIDE 105 MMOL/L (98-107); CREATININE 0.8 MG/DL (0.55-1.30); POTASSIUM 3.6 MMOL/L (3.5-5.1); SODIUM 140 MMOL/L (136-145)
[2018-11-06 07:16] LABS: BASOPHILS % (AUTO) 0.8 % (0.0-2.0); EOSINOPHILS % (AUTO) 1.6 % (0.0-3.0); HEMATOCRIT 37.5 % (42.0-52.0); HEMOGLOBIN 13.4 G/DL (14.2-18.0); LYMPHOCYTES % (AUTO) 24.2 % (20.0-45.0); MEAN CORPUSCULAR VOLUME 91 FL (80-99); MONOCYTES % (AUTO) 12.9 % (1.0-10.0); NEUTROPHILS % (AUTO) 60.6 % (45.0-75.0); PLATELET COUNT 295 K/UL (150-450); RED BLOOD COUNT 4.14 M/UL (4.70-6.10); RED CELL DISTRIBUTION WIDTH 10.3 % (11.6-14.8); WHITE BLOOD COUNT 7.3 K/UL (4.8-10.8)
[2018-11-06 08:00] VITALS: BP 126/74
--- NOTE | 2018-11-06 12:01 | GI Progress Note ---
Assessment/Plan Problems: (1) Colitis ICD Codes: K52.9 - Noninfective gastroenteritis and colitis, unspecified SNOMED: 90347386 (2) Partial small bowel obstruction ICD Codes: K56.600 - Partial intestinal obstruction, unspecified as to cause SNOMED: 061767531 (3) Short bowel syndrome ICD Codes: K91.2 - Postsurgical malabsorption, not elsewhere classified SNOMED: 04519157 (4) SOB (shortness of breath) ICD Codes: R06.02 - Shortness of breath SNOMED: 055356220 Status: unchanged Status Narrative Discussed with Dr. Haro. Assessment/Plan abd pain CT reviewed infectious or inflammatory enterocolitis involving the terminal ileum and proximal ascending colon. There is secondary developing small bowel obstruction. ? gastroenteritis KUB shows worsening SB dilated loops SBFT today avoid narcotic use Maintain NPO + IVFs abx fu labs The patient was seen and examined at bedside and all new and available data was reviewed in the patients chart. I agree with the above findings, impression and plan. (Patient seen earlier today. Signature stamp does not reflect patient encounter time.). - Donald Haro MD Subjective Subjective abdominal distention Objective Last 24 Hour Vital Signs Date Time Temp Pulse Resp B/P (MAP) Pulse Ox O2 Delivery O2 Flow Rate FiO2 11/06/18 08:12 Room Air 11/06/18 08:00 98.0 61 19 126/74 (91) 95 11/06/18 04:00 98.0 65 19 114/64 (81) 95 11/05/18 21:00 Room Air 11/05/18 20:00 98.6 86 18 125/59 (81) 100 11/05/18 16:00 99.7 75 20 126/77 (93) 95 11/05/18 13:20 98.6 Intake and Output 11/05/18 11/06/18 19:00 07:00 Intake Total 400 ml 1000 ml Balance 400 ml 1000 ml Intake Oral 300 ml IV Total 100 ml 1000 ml # Voids 3 3 # Bowel Movements 2 Laboratory Tests Test 11/06/18 05:30 White Blood Count 7.3 K/UL (4.8-10.8) Red Blood Count 4.14 M/UL (4.70-6.10) L Hemoglobin 13.4 G/DL (14.2-18.0) L Hematocrit 37.5 % (42.0-52.0) L Mean Corpuscular Volume 91 FL (80-99) Mean Corpuscular Hemoglobin 32.4 PG (27.0-31.0) H Mean Corpuscular Hemoglobin Concent 35.8 G/DL (32.0-36.0) Red Cell Distribution Width 10.3 % (11.6-14.8) L Platelet Count 295 K/UL (150-450) Mean Platelet Volume 6.3 FL (6.5-10.1) L Neutrophils (%) (Auto) 60.6 % (45.0-75.0) Lymphocytes (%) (Auto) 24.2 % (20.0-45.0) Monocytes (%) (Auto) 12.9 % (1.0-10.0) H Eosinophils (%) (Auto) 1.6 % (0.0-3.0) Basophils (%) (Auto) 0.8 % (0.0-2.0) Sodium Level 140 MMOL/L (136-145) Potassium Level 3.6 MMOL/L (3.5-5.1) Chloride Level 105 MMOL/L (98-107) Carbon Dioxide Level 31 MMOL/L (21-32) Anion Gap 4 mmol/L (5-15) L Blood Urea Nitrogen 8 mg/dL (7-18) Creatinine 0.8 MG/DL (0.55-1.30) Estimat Glomerular Filtration Rate > 60 mL/min (>60) Glucose Level 100 MG/DL (74-106) Calcium Level 8.2 MG/DL (8.5-10.1) L Microbiology Date/Time Source Procedure Growth Status 11/05/18 16:10 Stool Stool Culture Pending Resulted 11/05/18 16:10 Stool Clostridium difficile Toxin Assay - Final Resulted Height (Feet): 6 Height (Inches): 0.00 Weight (Pounds): 212 General Appearance: WD/WN, no apparent distress, alert Cardiovascular: normal rate Respiratory/Chest: normal breath sounds, no respiratory distress Abdominal Exam: normal bowel sounds, non tender, soft, distended Extremities: normal range of motion, non-tender Vin Morales NP Nov 06, 2018 12:01
--- NOTE | 2018-11-06 12:45 | General Progress Note ---
Assessment/Plan Assessment/Plan IMPRESSION: Small bowel obstruction, evidence of enteritis, alcohol abuse per history, mild protein-calorie malnutrition. gastroenteritis PLAN NPO SBFT monitor dc planning when cleared by GI imaging noted impression, plan, and exam edited and reviewed in detail care discussed with RN Subjective Allergies: Coded Allergies: No Known Allergies (Unverified , 11/02/18) Subjective appreciate GI findings noted Objective Last 24 Hour Vital Signs Date Time Temp Pulse Resp B/P (MAP) Pulse Ox O2 Delivery O2 Flow Rate FiO2 11/06/18 08:12 Room Air 11/06/18 08:00 98.0 61 19 126/74 (91) 95 11/06/18 04:00 98.0 65 19 114/64 (81) 95 11/05/18 21:00 Room Air 11/05/18 20:00 98.6 86 18 125/59 (81) 100 11/05/18 16:00 99.7 75 20 126/77 (93) 95 11/05/18 13:20 98.6 Intake and Output 11/05/18 11/06/18 19:00 07:00 Intake Total 400 ml 1000 ml Balance 400 ml 1000 ml Intake Oral 300 ml IV Total 100 ml 1000 ml # Voids 3 3 # Bowel Movements 2 Laboratory Tests 11/06/18 05:30: White Blood Count 7.3, Red Blood Count 4.14L, Hemoglobin 13.4L, Hematocrit 37.5L , Mean Corpuscular Volume 91, Mean Corpuscular Hemoglobin 32.4H, Mean Corpuscular Hemoglobin Concent 35.8, Red Cell Distribution Width 10.3L, Platelet Count 295, Mean Platelet Volume 6.3L, Neutrophils (%) (Auto) 60.6, Lymphocytes (%) (Auto) 24.2, Monocytes (%) (Auto) 12.9H, Eosinophils (%) (Auto) 1.6, Basophils (%) (Auto) 0.8, Sodium Level 140, Potassium Level 3.6, Chloride Level 105, Carbon Dioxide Level 31, Anion Gap 4L, Blood Urea Nitrogen 8, Creatinine 0.8, Estimat Glomerular Filtration Rate > 60, Glucose Level 100, Calcium Level 8.2L Height (Feet): 6 Height (Inches): 0.00 Weight (Pounds): 212 Objective PHYSICAL EXAMINATION: GENERAL: A well-developed male, otherwise comfortable. LUNGS: Clear. CARDIAC: S1, S2. Regular rate and rhythm. ABDOMEN: NABS no CCE nonfocal Tyrese Mathew MD Nov 06, 2018 12:45
--- NOTE | 2018-11-06 13:36 | Consultation ---
History of Present Illness General Date patient seen: Nov 05, 2018 Chief Complaint: Abdominal Pain Reason for Consultation: Abdominal pain / SBO Present Illness HPI 53 year old male presented with complaints of worsening abdominal pain, nausea, emesis. States pain worsening over past few days and generalized abdominal pain that is 8/10 without radiation. associated nausea and non bloody emesis. passing flatus and having loose BM's. Surgery called to evaluate for abdominal pain. patient seen, chart reviewed, patient examined. Cannot recall prior abdominal surgery. denies prior similar symptoms. states was out of town recently and believes he may have ate something that upset his intestines. Allergies: Coded Allergies: No Known Allergies (Unverified , 11/02/18) Medication History Scheduled No Known Medications* (NKM - No Known Medications*), 0 ., (Reported) Patient History History Provided By: Patient, Medical Record Healthcare decision maker Resuscitation status Full Code Advanced Directive on File Past Medical/Surgical History Past Medical/Surgical History: (1) Partial small bowel obstruction (2) Short bowel syndrome (3) Colitis (4) SOB (shortness of breath) Review of Systems All Other Systems: negative except mentioned in HPI Physical Exam General Appearance: no apparent distress, alert Lines, tubes and drains: peripheral HEENT: normocephalic, mucous membranes moist Neck: normal inspection Respiratory/Chest: normal breath sounds, no respiratory distress, no accessory muscle use Cardiovascular/Chest: regular rhythm Abdomen: soft, no organomegaly, no mass, distended, tender - minimal without rebound or guarding Extremities: normal inspection Skin Exam: warm/dry Neurologic: alert, responsive Last 24 Hour Vital Signs Date Time Temp Pulse Resp B/P (MAP) Pulse Ox O2 Delivery O2 Flow Rate FiO2 11/06/18 08:12 Room Air 11/06/18 08:00 98.0 61 19 126/74 (91) 95 11/06/18 04:00 98.0 65 19 114/64 (81) 95 11/05/18 21:00 Room Air 11/05/18 20:00 98.6 86 18 125/59 (81) 100 11/05/18 16:00 99.7 75 20 126/77 (93) 95 Intake and Output 11/05/18 11/06/18 19:00 07:00 Intake Total 400 ml 1000 ml Balance 400 ml 1000 ml Intake Oral 300 ml IV Total 100 ml 1000 ml # Voids 3 3 # Bowel Movements 2 Laboratory Tests Test 11/06/18 05:30 White Blood Count 7.3 K/UL (4.8-10.8) Red Blood Count 4.14 M/UL (4.70-6.10) L Hemoglobin 13.4 G/DL (14.2-18.0) L Hematocrit 37.5 % (42.0-52.0) L Mean Corpuscular Volume 91 FL (80-99) Mean Corpuscular Hemoglobin 32.4 PG (27.0-31.0) H Mean Corpuscular Hemoglobin Concent 35.8 G/DL (32.0-36.0) Red Cell Distribution Width 10.3 % (11.6-14.8) L Platelet Count 295 K/UL (150-450) Mean Platelet Volume 6.3 FL (6.5-10.1) L Neutrophils (%) (Auto) 60.6 % (45.0-75.0) Lymphocytes (%) (Auto) 24.2 % (20.0-45.0) Monocytes (%) (Auto) 12.9 % (1.0-10.0) H Eosinophils (%) (Auto) 1.6 % (0.0-3.0) Basophils (%) (Auto) 0.8 % (0.0-2.0) Sodium Level 140 MMOL/L (136-145) Potassium Level 3.6 MMOL/L (3.5-5.1) Chloride Level 105 MMOL/L (98-107) Carbon Dioxide Level 31 MMOL/L (21-32) Anion Gap 4 mmol/L (5-15) L Blood Urea Nitrogen 8 mg/dL (7-18) Creatinine 0.8 MG/DL (0.55-1.30) Estimat Glomerular Filtration Rate > 60 mL/min (>60) Glucose Level 100 MG/DL (74-106) Calcium Level 8.2 MG/DL (8.5-10.1) L Microbiology Date/Time Source Procedure Growth Status 11/05/18 16:10 Stool Stool Culture Pending Resulted 11/05/18 16:10 Stool Clostridium difficile Toxin Assay - Final Resulted Height (Feet): 6 Height (Inches): 0.00 Weight (Pounds): 212 Medications Current Medications Medications (Trade) Dose Ordered Sig/Jackie Route PRN Reason Start Time Stop Time Status Last Admin Dose Admin Acetaminophen (Tylenol) 650 mg Q4H PRN ORAL Fever/Headache/Mild Pain 11/04/18 04:30 12/04/18 04:29 11/04/18 04:49 Metronidazole 100 ml @ 100 mls/hr Q8HR IVPB 11/03/18 06:00 11/10/18 05:59 11/06/18 13:16 Morphine Sulfate (Morphine Sulfate) 2 mg Q3HR PRN IVP Mild Pain (Pain Scale 1-3) 11/04/18 04:45 11/11/18 04:14 Morphine Sulfate (Morphine Sulfate) 4 mg Q3HR PRN IVP Moderate Pain (Pain Scale 4-6) 11/04/18 04:45 11/11/18 04:14 11/06/18 06:45 Morphine Sulfate (Morphine Sulfate) 6 mg Q3HR PRN IVP Severe Pain (Pain Scale 7-10) 11/04/18 04:45 11/11/18 04:14 11/06/18 13:16 Ondansetron HCl (Zofran) 4 mg Q6H PRN IVP Nausea & Vomiting 11/03/18 04:15 12/03/18 04:14 11/04/18 21:51 Sodium Chloride 1,000 ml @ 100 mls/hr Q10H IVLG 11/03/18 05:04 12/03/18 05:03 11/06/18 13:16 Zolpidem Tartrate (Ambien) 5 mg HSPRN PRN ORAL Insomnia 11/05/18 14:30 11/12/18 14:29 11/05/18 21:22 Assessment/Plan Problem List: (1) Partial small bowel obstruction Assessment & Plan: 53M w/ abdominal pain, nausea, emesis. infectious colitis/ enteritis, possible sbo? CT Findings consistent with infectious or inflammatory enterocolitis involving the terminal ileum and proximal ascending colon. There is secondary developing small bowel obstruction. Recommend followup to exclude underlying occult mass. Small amount of free fluid. No free air or fluid collections. Likely reactive mesenteric lymphadenopathy. Suspected prior appendectomy. Correlate with history. KUB Worsening small bowel dilatation, currently mild to moderate in degree. Follow-up suggested. Exam with distention but minimal tenderness, no rebound, no guarding. -Agree with small bowel follow through with Gastrografin to ensure no mass or complete obstruction. seems infectious in nature -NPO -IV fluids -will follow clinically. thank you ICD Codes: K56.600 - Partial intestinal obstruction, unspecified as to cause SNOMED: 278880605 Status: stable Mir Cohen Nov 06, 2018 13:36
[2018-11-06 16:00] VITALS: BP 135/76
[2018-11-06 20:00] VITALS: BP 120/77
[2018-11-07] VITALS (7 sets, daily range): BP systolic 104–139; BP diastolic 51–81
[2018-11-07 06:48] LABS: BASOPHILS % (AUTO) 1.3 % (0.0-2.0); EOSINOPHILS % (AUTO) 2.2 % (0.0-3.0); HEMOGLOBIN 14.2 G/DL (14.2-18.0); MEAN CORPUSCULAR VOLUME 89 FL (80-99); MONOCYTES % (AUTO) 11.3 % (1.0-10.0); NEUTROPHILS % (AUTO) 65.3 % (45.0-75.0); PLATELET COUNT 327 K/UL (150-450); RED BLOOD COUNT 4.48 M/UL (4.70-6.10); WHITE BLOOD COUNT 6.6 K/UL (4.8-10.8)
[2018-11-07 07:02] LABS: ANION GAP 9 mmol/L (5-15); BLOOD UREA NITROGEN 6 mg/dL (7-18); CALCIUM 8.8 MG/DL (8.5-10.1); CARBON DIOXIDE 28 MMOL/L (21-32); CHLORIDE 101 MMOL/L (98-107); CREATININE 0.8 MG/DL (0.55-1.30); POTASSIUM 3.6 MMOL/L (3.5-5.1); SODIUM 138 MMOL/L (136-145)
--- NOTE | 2018-11-07 10:29 | Diagnostic Imaging Report ---
Indication: Abdominal distention, abnormal recent CT scan Technique: Patient ingested oral contrast. Serial abdominal radiographs then obtained for 2 hours. Comparison: Reference made to CT scan dated 11/02/2018. Comparison also to plain radiograph dated 11/05/2018 Findings: Scattered image demonstrates diffusely distended small bowel loops, degree of distention similar to previous studies. Surgical clips are seen in the right lower quadrant. After ingestion of contrast, proximal small bowel loops are seen to be nondilated, and mucosal fold pattern appears unremarkable. There is progressive traversal of contrast through the small bowel. As demonstrated on the hose sprayer image, more distal small bowel loops are somewhat diffusely dilated. No definite mucosal abnormality demonstrated. Contrast is probably seen within the colon at one hour 30 minutes, and is definitely seen within the colon at 2 hours. Impression: No evidence of small bowel obstruction Diffuse mild small bowel distention, presumably functional in nature Findings discussed by phone with nurse practitioner Holland at the time of interpretation
--- NOTE | 2018-11-07 12:18 | GI Progress Note ---
Assessment/Plan Problems: (1) Colitis ICD Codes: K52.9 - Noninfective gastroenteritis and colitis, unspecified SNOMED: 04893448 (2) Partial small bowel obstruction ICD Codes: K56.600 - Partial intestinal obstruction, unspecified as to cause SNOMED: 646788051 (3) Short bowel syndrome ICD Codes: K91.2 - Postsurgical malabsorption, not elsewhere classified SNOMED: 41920950 (4) SOB (shortness of breath) ICD Codes: R06.02 - Shortness of breath SNOMED: 326817956 Status: stable Status Narrative Discussed with Dr. Haro. Assessment/Plan abd pain CT reviewed infectious or inflammatory enterocolitis involving the terminal ileum and proximal ascending colon. There is secondary developing small bowel obstruction. ? gastroenteritis Cdiff negative KUB shows worsening SB dilated loops SBFT reviewed >> no obstruction noted adv to regular diet encourage ambulation avoid narcotic use abx simethicone prn fu labs The patient was seen and examined at bedside and all new and available data was reviewed in the patients chart. I agree with the above findings, impression and plan. (Patient seen earlier today. Signature stamp does not reflect patient encounter time.). - Donald Haro MD Subjective Subjective abdominal distention improved passing flatus had BM Objective Last 24 Hour Vital Signs Date Time Temp Pulse Resp B/P (MAP) Pulse Ox O2 Delivery O2 Flow Rate FiO2 11/07/18 09:00 Room Air 11/07/18 08:00 98.3 88 19 139/78 (98) 94 11/07/18 08:00 98.3 88 19 139/78 (98) 94 11/07/18 04:00 98.2 57 17 125/73 (90) 97 11/07/18 00:00 97.7 62 19 127/69 (88) 95 11/06/18 21:00 Room Air 11/06/18 20:00 97.8 74 18 120/77 (91) 95 11/06/18 16:00 98.5 69 19 135/76 (95) 97 Intake and Output 11/06/18 11/07/18 19:00 07:00 Intake Total 850 ml 1000 ml Balance 850 ml 1000 ml IV Total 850 ml 1000 ml # Voids 6 5 # Bowel Movements 4 Laboratory Tests Test 11/07/18 06:35 White Blood Count 6.6 K/UL (4.8-10.8) Red Blood Count 4.48 M/UL (4.70-6.10) L Hemoglobin 14.2 G/DL (14.2-18.0) Hematocrit 40.0 % (42.0-52.0) L Mean Corpuscular Volume 89 FL (80-99) Mean Corpuscular Hemoglobin 31.6 PG (27.0-31.0) H Mean Corpuscular Hemoglobin Concent 35.4 G/DL (32.0-36.0) Red Cell Distribution Width 10.0 % (11.6-14.8) L Platelet Count 327 K/UL (150-450) Mean Platelet Volume 5.8 FL (6.5-10.1) L Neutrophils (%) (Auto) 65.3 % (45.0-75.0) Lymphocytes (%) (Auto) 20.0 % (20.0-45.0) Monocytes (%) (Auto) 11.3 % (1.0-10.0) H Eosinophils (%) (Auto) 2.2 % (0.0-3.0) Basophils (%) (Auto) 1.3 % (0.0-2.0) Sodium Level 138 MMOL/L (136-145) Potassium Level 3.6 MMOL/L (3.5-5.1) Chloride Level 101 MMOL/L (98-107) Carbon Dioxide Level 28 MMOL/L (21-32) Anion Gap 9 mmol/L (5-15) Blood Urea Nitrogen 6 mg/dL (7-18) L Creatinine 0.8 MG/DL (0.55-1.30) Estimat Glomerular Filtration Rate > 60 mL/min (>60) Glucose Level 88 MG/DL (74-106) Calcium Level 8.8 MG/DL (8.5-10.1) Height (Feet): 6 Height (Inches): 0.00 Weight (Pounds): 198 General Appearance: WD/WN, no apparent distress, alert Cardiovascular: normal rate Respiratory/Chest: normal breath sounds, no respiratory distress Abdominal Exam: normal bowel sounds, non tender, soft Extremities: normal range of motion, non-tender Vin Morales NP Nov 07, 2018 12:18
[2018-11-07] MEDS ORDERED: Simethicone 80mg tab ORAL SCH (12:30)
[2018-11-07] MEDS ORDERED: Simethicone 80mg tab ORAL PRN (12:30)
--- NOTE | 2018-11-07 15:55 | General Surgery Progress Note ---
General Surgery-Progress Note Subjective Symptoms: improved Additional Comments doing well. comfortable. no n/v/f/c. Objective Last 24 Hour Vital Signs Date Time Temp Pulse Resp B/P (MAP) Pulse Ox O2 Delivery O2 Flow Rate FiO2 11/07/18 12:00 98.8 74 18 128/74 (92) 96 11/07/18 09:00 Room Air 11/07/18 08:00 98.3 88 19 139/78 (98) 94 11/07/18 08:00 98.3 88 19 139/78 (98) 94 11/07/18 04:00 98.2 57 17 125/73 (90) 97 11/07/18 00:00 97.7 62 19 127/69 (88) 95 11/06/18 21:00 Room Air 11/06/18 20:00 97.8 74 18 120/77 (91) 95 11/06/18 16:00 98.5 69 19 135/76 (95) 97 I&O Intake and Output 11/06/18 11/07/18 19:00 07:00 Intake Total 850 ml 1100 ml Balance 850 ml 1100 ml IV Total 850 ml 1100 ml # Voids 6 5 # Bowel Movements 4 Drains: none Cardiovascular: RSR Respiratory: clear Abdomen: soft, flat, non-tender, present bowel sounds Extremities: no tenderness, no cyanosis Laboratory Tests Test 11/07/18 06:35 White Blood Count 6.6 K/UL (4.8-10.8) Red Blood Count 4.48 M/UL (4.70-6.10) L Hemoglobin 14.2 G/DL (14.2-18.0) Hematocrit 40.0 % (42.0-52.0) L Mean Corpuscular Volume 89 FL (80-99) Mean Corpuscular Hemoglobin 31.6 PG (27.0-31.0) H Mean Corpuscular Hemoglobin Concent 35.4 G/DL (32.0-36.0) Red Cell Distribution Width 10.0 % (11.6-14.8) L Platelet Count 327 K/UL (150-450) Mean Platelet Volume 5.8 FL (6.5-10.1) L Neutrophils (%) (Auto) 65.3 % (45.0-75.0) Lymphocytes (%) (Auto) 20.0 % (20.0-45.0) Monocytes (%) (Auto) 11.3 % (1.0-10.0) H Eosinophils (%) (Auto) 2.2 % (0.0-3.0) Basophils (%) (Auto) 1.3 % (0.0-2.0) Sodium Level 138 MMOL/L (136-145) Potassium Level 3.6 MMOL/L (3.5-5.1) Chloride Level 101 MMOL/L (98-107) Carbon Dioxide Level 28 MMOL/L (21-32) Anion Gap 9 mmol/L (5-15) Blood Urea Nitrogen 6 mg/dL (7-18) L Creatinine 0.8 MG/DL (0.55-1.30) Estimat Glomerular Filtration Rate > 60 mL/min (>60) Glucose Level 88 MG/DL (74-106) Calcium Level 8.8 MG/DL (8.5-10.1) Plan Problems: (1) Partial small bowel obstruction Assessment & Plan: 53M w/ abdominal pain, nausea, emesis. infectious colitis/ enteritis, possible sbo? CT Findings consistent with infectious or inflammatory enterocolitis involving the terminal ileum and proximal ascending colon. There is secondary developing small bowel obstruction. Recommend followup to exclude underlying occult mass. Small amount of free fluid. No free air or fluid collections. Likely reactive mesenteric lymphadenopathy. Suspected prior appendectomy. Correlate with history. KUB Worsening small bowel dilatation, currently mild to moderate in degree. Follow-up suggested. Exam with distention but minimal tenderness, no rebound, no guarding. small bowel follow through - no evidence of small bowel obstruction Diffuse mild small bowel distention, presumably functional in nature -diet as tolerated -okay to d/c from surgical standpoint -will follow clinically. thank you Mir Cohen Nov 07, 2018 15:55
--- NOTE | 2018-11-07 17:23 | General Progress Note ---
Assessment/Plan Assessment/Plan IMPRESSION: Small bowel obstruction, evidence of enteritis, alcohol abuse per history, mild protein-calorie malnutrition. gastroenteritis PLAN cleared by gi and gs imaging noted and reviewed d/w patient impression, plan, and exam edited and reviewed in detail care discussed with RN Subjective Allergies: Coded Allergies: No Known Allergies (Unverified , 11/02/18) Subjective appreciate GI diet advanced Objective Last 24 Hour Vital Signs Date Time Temp Pulse Resp B/P (MAP) Pulse Ox O2 Delivery O2 Flow Rate FiO2 11/07/18 16:00 97.8 67 18 109/65 (80) 96 11/07/18 12:00 98.8 74 18 128/74 (92) 96 11/07/18 09:00 Room Air 11/07/18 08:00 98.3 88 19 139/78 (98) 94 11/07/18 08:00 98.3 88 19 139/78 (98) 94 11/07/18 04:00 98.2 57 17 125/73 (90) 97 11/07/18 00:00 97.7 62 19 127/69 (88) 95 11/06/18 21:00 Room Air 11/06/18 20:00 97.8 74 18 120/77 (91) 95 Intake and Output 11/06/18 11/07/18 19:00 07:00 Intake Total 850 ml 1100 ml Balance 850 ml 1100 ml IV Total 850 ml 1100 ml # Voids 6 5 # Bowel Movements 4 Laboratory Tests 11/07/18 06:35: White Blood Count 6.6, Red Blood Count 4.48L, Hemoglobin 14.2, Hematocrit 40.0L , Mean Corpuscular Volume 89, Mean Corpuscular Hemoglobin 31.6H, Mean Corpuscular Hemoglobin Concent 35.4, Red Cell Distribution Width 10.0L, Platelet Count 327, Mean Platelet Volume 5.8L, Neutrophils (%) (Auto) 65.3, Lymphocytes (%) (Auto) 20.0, Monocytes (%) (Auto) 11.3H, Eosinophils (%) (Auto) 2.2, Basophils (%) (Auto) 1.3, Sodium Level 138, Potassium Level 3.6, Chloride Level 101, Carbon Dioxide Level 28, Anion Gap 9, Blood Urea Nitrogen 6L, Creatinine 0.8, Estimat Glomerular Filtration Rate > 60, Glucose Level 88, Calcium Level 8.8 Height (Feet): 6 Height (Inches): 0.00 Weight (Pounds): 198 Objective PHYSICAL EXAMINATION: GENERAL: A well-developed male, otherwise comfortable. LUNGS: Clear. CARDIAC: S1, S2. Regular rate and rhythm. ABDOMEN: NABS no CCE nonfocal Tyrese Mathew MD Nov 07, 2018 17:23
[2018-11-07] MEDS: metroNIDAZOLE 500mg tab ORAL SCH (21:37)
[2018-11-08] VITALS: BP 126/77
[2018-11-08 04:00] VITALS: BP 121/72
[2018-11-08] MEDS: metroNIDAZOLE 500mg tab ORAL SCH (05:11)
[2018-11-08 07:32] LABS: ANION GAP 8 mmol/L (5-15); BLOOD UREA NITROGEN 8 mg/dL (7-18); CALCIUM 8.8 MG/DL (8.5-10.1); CARBON DIOXIDE 27 MMOL/L (21-32); CHLORIDE 107 MMOL/L (98-107); CREATININE 0.8 MG/DL (0.55-1.30); POTASSIUM 3.6 MMOL/L (3.5-5.1); SODIUM 142 MMOL/L (136-145)
[2018-11-08 07:39] LABS: EOSINOPHILS % (AUTO) 2.1 % (0.0-3.0); HEMATOCRIT 43.1 % (42.0-52.0); HEMOGLOBIN 15.3 G/DL (14.2-18.0); LYMPHOCYTES % (AUTO) 22.4 % (20.0-45.0); MEAN CORPUSCULAR VOLUME 89 FL (80-99); NEUTROPHILS % (AUTO) 62.4 % (45.0-75.0); PLATELET COUNT 354 K/UL (150-450); RED BLOOD COUNT 4.82 M/UL (4.70-6.10); WHITE BLOOD COUNT 7.3 K/UL (4.8-10.8)
[2018-11-08 08:10] VITALS: BP 121/72
--- NOTE | 2018-11-08 08:33 | General Progress Note ---
Assessment/Plan Assessment/Plan IMPRESSION: Small bowel obstruction, evidence of enteritis, alcohol abuse per history, mild protein-calorie malnutrition. gastroenteritis PLAN cleared by gi and gs imaging noted and reviewed d/w patient; dc today; bland diet impression, plan, and exam edited and reviewed in detail care discussed with RN Subjective Allergies: Coded Allergies: No Known Allergies (Unverified , 11/08/18) Subjective appreciate GI diet advanced and tolerating better Objective Last 24 Hour Vital Signs Date Time Temp Pulse Resp B/P (MAP) Pulse Ox O2 Delivery O2 Flow Rate FiO2 11/08/18 04:00 99.2 71 19 121/72 (88) 97 11/08/18 00:00 98.6 56 18 126/77 (93) 97 11/07/18 21:00 Room Air 11/07/18 20:00 98.8 59 18 132/81 (98) 97 11/07/18 16:00 97.8 67 18 109/65 (80) 96 11/07/18 12:00 98.8 74 18 128/74 (92) 96 11/07/18 09:00 Room Air Intake and Output 11/07/18 11/08/18 19:00 07:00 Intake Total 3000 ml 1580 ml Balance 3000 ml 1580 ml Intake Oral 2200 ml 480 ml IV Total 800 ml 1100 ml # Voids 4 4 # Bowel Movements 1 3 Laboratory Tests 11/08/18 05:05: White Blood Count 7.3, Red Blood Count 4.82, Hemoglobin 15.3, Hematocrit 43.1, Mean Corpuscular Volume 89, Mean Corpuscular Hemoglobin 31.7H, Mean Corpuscular Hemoglobin Concent 35.4, Red Cell Distribution Width 10.0L, Platelet Count 354, Mean Platelet Volume 6.0L, Neutrophils (%) (Auto) 62.4, Lymphocytes (%) (Auto) 22.4, Monocytes (%) (Auto) 12.0H, Eosinophils (%) (Auto) 2.1, Basophils (%) ( Auto) 1.0, Sodium Level 142, Potassium Level 3.6, Chloride Level 107, Carbon Dioxide Level 27, Anion Gap 8, Blood Urea Nitrogen 8, Creatinine 0.8, Estimat Glomerular Filtration Rate > 60, Glucose Level 99, Calcium Level 8.8 Height (Feet): 6 Height (Inches): 0.00 Weight (Pounds): 198 Objective PHYSICAL EXAMINATION: GENERAL: A well-developed male, otherwise comfortable. LUNGS: Clear. CARDIAC: S1, S2. Regular rate and rhythm. ABDOMEN: NABS no CCE nonfocal Tyrese Mathew MD Nov 08, 2018 08:33
--- NOTE | 2018-11-08 10:36 | GI Progress Note ---
Assessment/Plan Problems: (1) Colitis ICD Codes: K52.9 - Noninfective gastroenteritis and colitis, unspecified SNOMED: 99043288 (2) Partial small bowel obstruction ICD Codes: K56.600 - Partial intestinal obstruction, unspecified as to cause SNOMED: 285824813 (3) Short bowel syndrome ICD Codes: K91.2 - Postsurgical malabsorption, not elsewhere classified SNOMED: 19982118 (4) SOB (shortness of breath) ICD Codes: R06.02 - Shortness of breath SNOMED: 504894814 Status: stable Status Narrative Discussed with Dr. Haro Assessment/Plan abd pain CT reviewed infectious or inflammatory enterocolitis involving the terminal ileum and proximal ascending colon. There is secondary developing small bowel obstruction. ? gastroenteritis Cdiff negative KUB shows worsening SB dilated loops SBFT reviewed >> no obstruction noted adv to regular diet encourage ambulation avoid narcotic use abx simethicone prn fu labs DC planning The patient was seen and examined at bedside and all new and available data was reviewed in the patients chart. I agree with the above findings, impression and plan. (Patient seen earlier today. Signature stamp does not reflect patient encounter time.). - Donald Haro MD Subjective Subjective abdominal distention improved passing flatus had BM Ambulating around unit Objective Last 24 Hour Vital Signs Date Time Temp Pulse Resp B/P (MAP) Pulse Ox O2 Delivery O2 Flow Rate FiO2 11/08/18 09:00 Room Air 11/08/18 08:10 98.8 65 18 121/72 (88) 97 11/08/18 04:00 99.2 71 19 121/72 (88) 97 11/08/18 00:00 98.6 56 18 126/77 (93) 97 11/07/18 21:00 Room Air 11/07/18 20:00 98.8 59 18 132/81 (98) 97 11/07/18 16:00 97.8 67 18 109/65 (80) 96 11/07/18 12:00 98.8 74 18 128/74 (92) 96 Intake and Output 11/07/18 11/08/18 19:00 07:00 Intake Total 3000 ml 1580 ml Balance 3000 ml 1580 ml Intake Oral 2200 ml 480 ml IV Total 800 ml 1100 ml # Voids 4 4 # Bowel Movements 1 3 Laboratory Tests Test 11/08/18 05:05 White Blood Count 7.3 K/UL (4.8-10.8) Red Blood Count 4.82 M/UL (4.70-6.10) Hemoglobin 15.3 G/DL (14.2-18.0) Hematocrit 43.1 % (42.0-52.0) Mean Corpuscular Volume 89 FL (80-99) Mean Corpuscular Hemoglobin 31.7 PG (27.0-31.0) H Mean Corpuscular Hemoglobin Concent 35.4 G/DL (32.0-36.0) Red Cell Distribution Width 10.0 % (11.6-14.8) L Platelet Count 354 K/UL (150-450) Mean Platelet Volume 6.0 FL (6.5-10.1) L Neutrophils (%) (Auto) 62.4 % (45.0-75.0) Lymphocytes (%) (Auto) 22.4 % (20.0-45.0) Monocytes (%) (Auto) 12.0 % (1.0-10.0) H Eosinophils (%) (Auto) 2.1 % (0.0-3.0) Basophils (%) (Auto) 1.0 % (0.0-2.0) Sodium Level 142 MMOL/L (136-145) Potassium Level 3.6 MMOL/L (3.5-5.1) Chloride Level 107 MMOL/L (98-107) Carbon Dioxide Level 27 MMOL/L (21-32) Anion Gap 8 mmol/L (5-15) Blood Urea Nitrogen 8 mg/dL (7-18) Creatinine 0.8 MG/DL (0.55-1.30) Estimat Glomerular Filtration Rate > 60 mL/min (>60) Glucose Level 99 MG/DL (74-106) Calcium Level 8.8 MG/DL (8.5-10.1) Height (Feet): 6 Height (Inches): 0.00 Weight (Pounds): 198 General Appearance: WD/WN, no apparent distress, alert Cardiovascular: normal rate Respiratory/Chest: normal breath sounds, no respiratory distress Abdominal Exam: normal bowel sounds, non tender, soft Extremities: normal range of motion, non-tender Vin Morales NP Nov 08, 2018 10:36
[2018-11-08] MEDS ORDERED: ZANTAC150 MG ORAL (11:01)
--- NOTE | 2018-11-09 09:36 | Discharge Summary ---
Discharge Summary Discharge Summary _ DATE OF ADMISSION: 11/03/2018 DATE OF DISCHARGE: 11/08/2018 DISCHARGED BY: Dr. Andres Mathew CONSULTANTS: Dr. Mir Haro BRIEF HOSPITAL COURSE: Patient is a 53-year-old male, who presented to ED due to abdominal pain. Patient had been undergoing detox for alcohol. He denies any significant diarrhea. No fever. No chills. No ill contacts. No recent travel. The patient had been ill for 3 weeks for upper respiratory symptoms. He also has a history of appendectomy. On evaluation at the ED, abdominal exam showed no rebound, no guarding, there was referred pain and tenderness to the right lower quadrant. Blood work showed WBC 14.2. Hemoglobin and hematocrit were stable. Lipase normal. Urinalysis was essentially unremarkable. Troponin was negative. He had an EKG done that showed normal sinus rhythm. Chest x-ray showed no acute disease. KUB showed nonspecific bowel gas pattern. CT of abdomen and pelvis showed colitis and possible partial small bowel obstruction. He was then admitted for elevation of small bowel obstruction, enteritis, alcohol abuse per history and mild protein calorie malnutrition. He was given supportive care. He was started on IV hydration and IV Flagyl. He was given pain control. He was initially on a clear liquid diet. GI and surgery were consulted. Diet was advanced. Patient continued to have vomiting. Urine toxicology was negative. Stool studies were negative. Repeat KUB showed worsening small bowel dilated loops. He was then placed on n.p.o. Surgical evaluation was done. A small bowel follow-through showed no evidence of small bowel obstruction. There was diffuse mild bowel distention, presumably functional in nature. Diet was advanced as tolerated. He was encouraged ambulation. There were no further nausea or vomiting and abdominal distention improved. Patient was passing flatus and was ambulating around the unit. Cultures were negative. He was discharged home. FINAL DIAGNOSES: Small bowel obstruction Evidence of enteritis Alcohol abuse per history Mild protein calorie malnutrition Gastroenteritis DISPOSITION: Patient was discharged home. DISCHARGE MEDICATIONS: Refer to Discharge Medication List. DISCHARGE INSTRUCTIONS: Follow-up in a week. I have been assigned to dictate discharge summary on this account, and I was not involved in the patient's management. Carmtia Knott NP Nov 09, 2018 09:36
== END 2018-11-08 11:15 | disposition home or self-care (01) | DRG 247 ==
LOC: EMR 22:00 → 4E 11-03 02:15 → EDBEDREQ 11-03 02:33 → 3E 11-04 14:06
DX: K56.609 Unspecified intestinal obstruction, unspecified as to partial versus complete obstruction (principal); E44.1 Mild protein-calorie malnutrition; K52.9 Noninfective gastroenteritis and colitis, unspecified; F10.10 Alcohol abuse, uncomplicated
CPT/HCPCS: 36415; 71045; 74018; 74177; 74250; 80048; 80053; 80307; 81003; 82150; 83690; 84484; 85007; 85025; 87040; 87045; 87070; 87086; 87205; 87324; 93005; 96361; 96365; 96367; 96375; 96376; 99285; J2405

== ENCOUNTER 2018-11-18 13:57 | Emergency (ER) | payer MEDICAID ==
[~2018-11-18] VITALS: Ht 182.9 cm; Wt 93.0 kg
[~2018-11-18 13:57] MED LIST: NKM; ZANTAC150 MG ORAL
[2018-11-18] MEDS ORDERED: IBUPROFEN600 MG ORAL (14:06)
[2018-11-18 14:10] VITALS: BP 132/78
--- NOTE | 2018-11-18 14:23 | Emergency Room Report ---
History of Present Illness General Chief Complaint: Upper Extremity Injury Source: Patient Present Illness HPI Patient is a 53-year-old male presented after increased redness and swelling to his right middle finger. Patient is left-hand dominant. He reports having injury approximately 6 weeks ago. He states he has been splinting his finger with a AlumaFoam splint. Patient stated that he has been not having any severe discomfort. He reports having recent been hospitalized and treated for colitis. He denies any recent trauma.Patient reports having increased difficulty with extension of the distal phalanx. Allergies: Coded Allergies: No Known Allergies (Unverified , 11/08/18) Patient History Past Medical History: see triage record Reviewed Nursing Documentation: PMH: Agreed; PSxH: Agreed Nursing Documentation-PMH Past Medical History: No History, Except For Hx Gastrointestinal Problems: Yes - Colitis Review of Systems All Other Systems: negative except mentioned in HPI Physical Exam Vital Signs Date Time Temp Pulse Resp B/P (MAP) Pulse Ox O2 Delivery O2 Flow Rate FiO2 11/18/18 13:59 98.6 76 14 132/78 98 Room Air General Appearance: well appearing, no apparent distress, alert, GCS 15, non- toxic Head: normocephalic, atraumatic ENT: hearing grossly normal, normal voice Neck: full range of motion, supple Respiratory: no respiratory distress, speaking full sentences Cardiovascular #1: normal inspection Musculoskeletal: swelling - left middle finger, distal phalanx unable to extend fully Neurologic: normal inspection, alert, oriented x3, responsive, normal gait Psychiatric: mood/affect normal Skin: no rash Medical Decision Making Diagnostic Impression: Primary Impression: Mallet finger of right hand ER Course . Presented for right middle finger pain. Initial diagnosis include was not limited to fracture, mallet finger, contact dermatitis, abscess among others. Patient has a benign exam and does not appear to require any further laboratory testing at this time. X-ray imaging of the right middle finger 3 views interpreted by me showed normal bony alignment without evident fracture. The patient was noted to have what appears to be a contact dermatitis. Patient was placed in a splint. Patient was advised to follow-up with his primary care physician for hand surgery referral. Last Vital Signs Date Time Temp Pulse Resp B/P (MAP) Pulse Ox O2 Delivery O2 Flow Rate FiO2 11/18/18 13:59 98.6 76 14 132/78 98 Room Air Status: improved Disposition: HOME, SELF-CARE Condition: Stable Scripts Hydrocortisone Acetate 1% Onit (HYDROCORTISONE 1% OINT) Y Oint 28 GM TP DAILY, #15 GM Prov: Kunal Koroma MD 11/18/18 Referrals: NOT CHOSEN [facility]/,REFERRING (PCP) Kunal Koroma MD Nov 18, 2018 14:23
[2018-11-18] MEDS ORDERED: HYDROCORTISONE28 G2 TP (14:49)
[2018-11-18 15:03] VITALS: BP 120/80
--- NOTE | 2018-11-19 13:47 | Diagnostic Imaging Report ---
Indication: Finger pain Technique: 3 views of the right index finger Comparison: none Findings: No acute fractures. No dislocations. The joint spaces are preserved. No radiopaque foreign body Impression: Negative
== END 2018-11-18 15:03 | disposition home or self-care (01) ==
LOC: EMR 14:17
DX: M20.011 Mallet finger of right finger(s) (principal)
CPT/HCPCS: 99283

== ENCOUNTER 2020-08-10 02:04 | Emergency (ER) | payer MEDICAID ==
[~2020-08-10] VITALS: Ht 182.9 cm; Wt 88.5 kg
[~2020-08-10 02:04] MED LIST changes: +HYDROCORTISONE28 G2 TP; +IBUPROFEN600 MG ORAL
[2020-08-10] MEDS ORDERED: Ketorolac 60mg Inj IM ONE (02:15)
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
[2020-08-10] MEDS ORDERED: HYDROcodone/Acetamin 5/325 tab ORAL ONE (03:15)
--- NOTE | 2020-08-10 03:22 | Emergency Room Report ---
History of Present Illness General Chief Complaint: Pain Source: Patient Present Illness HPI 55-year-old male with no relevant past medical history here with left-sided lower back pain radiating down his left leg. Patient says that 5 days ago he lifted something heavy and strained his lower back. He had severe pain in his left lumbar region that was radiating down his left leg and it is now getting worse. Denies any saddle anesthesia, urinary or fecal retention or incontinence , history of cancer, other trauma, IV drug use, fevers, chills. Says he is experiencing radiating pain from his left lower back going down his posterior left leg down his lateral left leg. 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 COVID-19 Screening: Negative COVID-19 COVID-19 Testing Source: april 2020 Nursing Documentation-[facility] Past Medical History: No History, Except For Hx Gastrointestinal Problems: Yes - Colitis Review of Systems All Other Systems: negative except mentioned in HPI Physical Exam Vital Signs Date Time Temp Pulse Resp B/P (MAP) Pulse Ox O2 Delivery O2 Flow Rate FiO2 08/10/20 02:07 98.4 85 18 152/81 (104) 95 Room Air Sp02 EP Interpretation: reviewed, normal General Appearance: no apparent distress, alert, non-toxic Head: normocephalic, atraumatic Eyes: bilateral eye normal inspection, bilateral eye PERRL ENT: hearing grossly normal, normal pharynx, no angioedema, normal voice Neck: full range of motion, supple/symm/no masses Respiratory: chest non-tender, lungs clear, normal breath sounds, speaking full sentences Cardiovascular #1: regular rate, rhythm, no edema Cardiovascular #2: 2+ carotid (R), 2+ carotid (L), 2+ radial (R), 2+ radial (L) , 2+ dorsalis pedis (R), 2+ dorsalis pedis (L) Gastrointestinal: normal bowel sounds, non tender, soft, non-distended, no guarding, no rebound Rectal: deferred Genitourinary: normal inspection, no CVA tenderness Musculoskeletal: back normal, normal range of motion, calf tenderness, gait/ station normal, other - No midline spinal tenderness. Negative straight leg raise test bilaterally. Neurologic: alert, motor strength/tone normal, sensory intact, responsive, speech normal Psychiatric: judgement/insight normal, memory normal, mood/affect normal, no suicidal/homicidal ideation Lymphatic: no adenopathy Medical Decision Making Diagnostic Impression: Primary Impression: Sciatic nerve pain Additional Impression: Strain, lumbosacral ER Course Ddx: Musculoskeletal, compression fx, herniated sic, sciatica, spinal stenosis, epidural abscess, osteomyelitis, cauda equina, mass-tumor 55-year-old male here with left lower back pain rating down his left lower extremity. This was consistent with sciatic back pain. Patient did not have any red flag warning signs such as urinary or fecal retention or incontinence, saddle anesthesia, fevers, chills, acute fracture, midline back pain, history of cancer. He was hemodynamically stable and neurovascularly intact in the emergency department. He was ambulating throughout the ER with some difficulty. He was given multiple pain medications with good resolution of his pain. Patient was wishing to be discharged and will follow up with his primary care provider. Discharged in stable condition. Last Vital Signs Date Time Temp Pulse Resp B/P (MAP) Pulse Ox O2 Delivery O2 Flow Rate FiO2 08/10/20 02:07 98.4 85 18 152/81 (104) 95 Room Air Scripts Hydrocodone Bit/Acetaminophen 5-325* (NORCO 5-325 TABLET*) 1 Each Tablet 1 TAB ORAL Q4H PRN for For Pain, #10 TAB Prov: Gianfranco Sanon M.D. 08/10/20 Diazepam* (VALIUM*) 5 Mg Tablet 5 MG ORAL TID PRN for ANXIETY, #10 TAB 0 Refills Prov: Gianfranco Sanon M.D. 08/10/20 Lidocaine Patch* (Lidoderm Patch*) 1 Each Adh..patch 1 PATCH TOPIC DAILY, #7 PATCH 0 Refills Patch(es) may remain in place for up to 12 hours in any 24-hour period. Prov: Gianfranco Sanon M.D. 08/10/20 Referrals: [facility],REFERRING (PCP) Gianfranco Sanon M.D. Aug 10, 2020 03:22
[2020-08-10] MEDS ORDERED: NORCO 5-325 TA1 EAC1 ORAL (03:34)
[2020-08-10] MEDS ORDERED: VALIUM5 MG ORAL (03:34)
[2020-08-10] MEDS ORDERED: LIDODERM700 M1 TOPIC (03:34)
[2020-08-10 03:45] VITALS: BP 142/72
--- NOTE | 2020-08-10 03:45 | NUR ---
ER DISCHARGE NOTE: Patient is cleared to be discharged per ERMD, pt is aox4, on room air, with stable vital signs. pt was given dc and prescription instructions, pt was able to verbalize understanding, pt id band removed. pt is able to ambulate with steady gait. pt took all belongings.
== END 2020-08-10 03:45 | disposition home or self-care (01) ==
LOC: EMR 02:21
DX: M54.30 Sciatica, unspecified side (principal); S39.012A Strain of muscle, fascia and tendon of lower back, initial encounter; X50.0XXA Overexertion from strenuous movement or load, initial encounter; Y93.9 Activity, unspecified; Y92.9 Unspecified place or not applicable
CPT/HCPCS: 96372; Z7502; 99283